=== PATIENT | female | born 1950 | race Caucasian/White ===

== ENCOUNTER 2016-09-29 08:54 | Outpatient (CLI) | payer OTHER ==
[2011-06-26 13:53] VITALS: BMI 25.8
== END 2016-09-29 09:23 ==
LOC: D.MAMMO 08:54
DX: Z12.31 Encounter for screening mammogram for malignant neoplasm of breast (principal)

== ENCOUNTER 2017-12-06 08:00 | Outpatient (CLI) | payer MEDICARE, BC ==
[2011-06-26 13:53] VITALS: BMI 25.8
== END 2017-12-06 09:00 | disposition home or self-care (01) ==
LOC: D.MAMMO 08:00
DX: Z12.31 Encounter for screening mammogram for malignant neoplasm of breast (principal)

== ENCOUNTER 2020-06-26 17:49 | Outpatient (CLI) | payer MEDICARE, BC ==
[2011-06-26 13:53] VITALS: BMI 25.8
== END 2020-06-26 23:59 | disposition home or self-care (01) ==
LOC: D.MAMMO 17:49
PROVIDERS: ATTEND Nurse Anesthetist, Certified Registered
DX: Z12.31 Encounter for screening mammogram for malignant neoplasm of breast (principal)